=== PATIENT | male | born 1955 | race Caucasian/White ===

== ENCOUNTER 2017-08-23 11:11 | Emergency (ER) | payer OTHER ==
[~2017-08-23] VITALS: Ht 177.8 cm; Wt 110.2 kg
[~2017-08-23 11:11] MED LIST: BUPROPION XL300 MG PO; LEVOTHYROXINE50 MCG PO
--- OUTSIDE RECORDS SUMMARY | 2017-08-23 11:15 | XMS REPORT ---
[facility] Address Unknown Phone Unavailable Care Team Providers Care Director Inpatient Headache Program Name Role Phone HUMA CARDENAS Unavailable Unavailable Problems This patient has no known problems. Allergies, Adverse Reactions, Alerts This patient has no known allergies or adverse reactions. Medications This patient has no known medications. Results Test Description Test Time Test Comments Text Results Atomic Results Result Comments Stress Test - Treadmill ONLY [place] [id number] Patient Name : VIKTORIYA KAUR MR #: [id number] : 1955 Age/Sex: 61/M Adm Physician : HUMA CARDENAS MD Admit Date : Location : [place] Room/Bed : REPORT: Cardiology Report DATE OF STUDY: March 09, 2017 [facility] NUCLEAR STRESS TEST INDICATIONS: Chest pain. DESCRIPTION OF PROCEDURE: After informed consent, patient was brought to the stress lab. He exercised on Venkatesh protocol. At peak heart rate patient was given 31 mCi of technetium 99 Myoview, and myocardial perfusion SPECT images were obtained in the horizontal long-axis, short-axis and vertical long-axis views. Prior to that, the patient was given 10.8 mCi of technetium 99 Myoview , and resting myocardial perfusion SPECT images were obtained in the horizontal long-axis, short-axis and vertical long-axis views. Gated images was were also obtained. Patient tolerated the procedure without any complications. REPORT: Baseline EKG shows sinus rhythm at 74 beats per minute, normal axis and normal intervals and nonspecific ST-T changes. PARAMETERS 1. Resting heart rate is 78 beats per minute. 2. Maximum heart rate is 138 beats per minute. 3. Resting blood pressure 131/97 mmHg. 4. Maximum pressure is recovery was 219/98 mmHg. REASON FOR TERMINATION: Fatigue. Duration of exercise was 6 minutes and 37 seconds. Protocol was manual protocol. Work load was 7 METs. INTERPRETATION 1. Negative chest pain. 2. Negative for arrhythmias. 3. Hypertensive blood pressure response. 4. No significant ST-T changes seen during stress compared to baseline. 5. Analysis of SPECT images reveals uniform radioisotope uptake in all segments of myocardium without any significant perfusion defects. CONCLUSION: 1. No evidence of significant ischemia or infarction on this study. 2. No wall motion abnormalities. 3. Overall ejection fraction is 63%. Job#: [id number] cc: HUMA CARDENAS MD Signature Date Dictated By: MOLLY CALHOUN MD Transcribed By: EDS on 03/09/17 <Electronically signed by MOLLY CALHOUN MD><<Signature on File>>03/15/17 0716 COPY TO:
[2017-08-23 12:20] LABS: BASOPHILS # (AUTO) 0.1 (0.0-0.1); BASOPHILS % 0.9 % (0.0-1.0); EOSINOPHILS # (AUTO) 0.1 (0.0-0.4); EOSINOPHILS % 1.8 % (0.0-6.0); HEMATOCRIT 43.4 % (38.2-49.6); HEMOGLOBIN 14.8 g/dL (14.0-18.0); LYMPHOCYTES # (AUTO) 2.1 (1.0-3.2); LYMPHOCYTES % 37.4 % (18.0-39.1); MEAN CORPUSCULAR HGB CONC 34.1 g/dL (31-35); MEAN CORPUSCULAR VOLUME 82.2 fL (81-99); MONOCYTES # (AUTO) 0.8 (0.2-0.8); MONOCYTES % 13.8 % (4.4-11.3); NEUTROPHILS # (AUTO) 2.5 (2.1-6.9); NEUTROPHILS % 45.7 % (38.7-80.0); PLATELET COUNT 222 x10e3/uL (140-360); RED BLOOD COUNT 5.28 x10e6/uL (4.3-5.7); RED CELL DISTRIBUTION WIDTH 12.7 % (11.7-14.4)
[2017-08-23 13:07] VITALS: BP 150/89
== END 2017-08-23 13:18 | disposition home or self-care (01) ==
LOC: FSED 11:11
DX: R07.89 Other chest pain (principal); I10 Essential (primary) hypertension; J30.9 Allergic rhinitis, unspecified; E03.9 Hypothyroidism, unspecified
CPT/HCPCS: 36415; 71046; 80053; 81003; 82553; 84484; 85025; 86308; 93005; 99284